=== PATIENT | female | born 1975 | race Caucasian/White ===

== ENCOUNTER 2018-05-18 12:43 | Outpatient (CLI) | payer MEDICAID ==
[2018-05-18] MEDS: LACTATED RINGER'S 1,000 ML IV ×2 (15:07→20:00)
[2018-05-18 16:11] LABS: ADD UMIC YES; UR ASCORBIC ACID NEGATIVE (NEGATIVE); UR BACTERIA FEW /HPF (NONE SEEN); UR BILIRUBIN (Dip) NEGATIVE (NEGATIVE); UR BLOOD (Dip) NEGATIVE (NEGATIVE); UR CLARITY CLEAR (CLEAR); UR COLOR YELLOW (YELLOW); UR GLUCOSE (Dip) NEGATIVE (NEGATIVE); UR KETONES (Dip) 1+ mg/dL (NEGATIVE); UR LEUKOCYTE ESTERASE (Dip) TRACE Leu/ul (NEGATIVE); UR MUCUS FEW /HPF (NONE SEEN); UR NITRITE (Dip) NEGATIVE (NEGATIVE); UR RBC 0 /HPF (0-5); UR SPECIFIC GRAVITY (Dip) 1.012 (1.003-1.030); UR SQUAMOUS EPITHELIAL CELL FEW /HPF (FEW); UR TOTAL PROTEIN (Dip) NEGATIVE (NEGATIVE); UR UROBILINOGEN (Dip) NEGATIVE (NEGATIVE); UR WBC 2 /HPF (0-5)
[2018-05-18 18:09] LABS: ADD MAN DIFF? NO
[2018-05-18 18:15] LABS: WHITE BLOOD COUNT 9.9 10^3/ul (4.8-10.8)
[2018-05-18 18:15] LABS: BASOPHILS % 0.1 % (0.0-2.0); EOSINOPHILS # 0.1 10^3/ul (0.0-0.5); EOSINOPHILS % 0.5 % (0.0-7.0); HEMATOCRIT 35.8 % (37.0-47.0); LYMPHOCYTES # 0.8 10^3/ul (0.8-2.9); LYMPHOCYTES % 7.6 % (15.0-51.0); MEAN CORPUSCULAR HEMOGLOBIN 32.3 pg (29.0-33.0); MEAN CORPUSCULAR HGB CONC 33.5 g/dl (32.0-37.0); MEAN CORPUSCULAR VOLUME 96.2 fl (82.0-101.0); MEAN PLATELET VOLUME 9.3 fl (7.4-10.4); MONOCYTE # 0.5 10^3/ul (0.3-0.9); MONOCYTES % 4.9 % (0.0-11.0); NEUTROPHIL # 8.6 10^3/ul (1.6-7.5); NEUTROPHILS % 86.3 % (39.0-77.0); PLATELET COUNT 148 10^3/UL (140-415); RED BLOOD COUNT 3.72 10^6/ul (4.20-5.40); RED CELL DISTRIBUTION WIDTH 13.7 % (11.5-14.5)
[2018-05-18 18:32] LABS: GLUCOSE 79 mg/dl (70-220)
== END 2018-05-18 20:34 | disposition home or self-care (01) ==
LOC: OBT 12:43 → L-D 12:43 → OBT 20:34
DX: O26.893 Other specified pregnancy related conditions, third trimester (principal); R10.2 Pelvic and perineal pain; Z3A.36 36 weeks gestation of pregnancy; R82.90 Unspecified abnormal findings in urine
CPT/HCPCS: 76818; 81001; 82947; 85025

== ENCOUNTER 2018-06-10 05:55 | Inpatient (IN) | payer MEDICAID ==
[2018-06-10 06:58] LABS: ADD MAN DIFF? NO
[2018-06-10] MEDS ORDERED: CARBOPROST 250 MCG INJ IM (07:00)
[2018-06-10] MEDS ORDERED: METHYLERGONOVINE 0.2 MG INJ IM (07:00)
[2018-06-10] MEDS ORDERED: MISOPROSTOL 200 MCG TAB PR ×2 (07:00→07:30)
[2018-06-10] MEDS ORDERED: OXYTOCIN 30 UNITS/LR 500 ML IV ×2 (07:00→07:30)
[2018-06-10 07:02] LABS: WHITE BLOOD COUNT 9.2 10^3/ul (4.8-10.8)
[2018-06-10 07:02] LABS: BASOPHILS % 0.2 % (0.0-2.0); EOSINOPHILS # 0.1 10^3/ul (0.0-0.5); HEMATOCRIT 39.4 % (37.0-47.0); HEMOGLOBIN 13.6 g/dl (12.0-16.0); LYMPHOCYTES % 10.4 % (15.0-51.0); MEAN CORPUSCULAR HEMOGLOBIN 32.5 pg (29.0-33.0); MEAN CORPUSCULAR HGB CONC 34.5 g/dl (32.0-37.0); MEAN PLATELET VOLUME 9.9 fl (7.4-10.4); MONOCYTE # 0.5 10^3/ul (0.3-0.9); MONOCYTES % 5.3 % (0.0-11.0); NEUTROPHIL # 7.6 10^3/ul (1.6-7.5); NEUTROPHILS % 82.1 % (39.0-77.0); PLATELET COUNT 176 10^3/UL (140-415); RED BLOOD COUNT 4.19 10^6/ul (4.20-5.40); RED CELL DISTRIBUTION WIDTH 13.1 % (11.5-14.5)
[2018-06-10] MEDS: LACTATED RINGER'S 1,000 ML IV ×4 (07:28→22:46)
[2018-06-10 07:29] LABS: INR 0.82; PARTIAL THROMBOPLASTIN TIME 30.9 Sec (23.0-35.0); PROTIME 11.4 Sec (11.9-14.9); PT RATIO 0.9
[2018-06-10] MEDS ORDERED: NALOXONE (0.4 MG/ML) INJ IV (07:30)
[2018-06-10] MEDS ORDERED: OXYCODONE/ACETAMINOPHEN (5/325) TAB PO (07:30)
[2018-06-10] MEDS ORDERED: ONDANSETRON 4 MG INJ IV ×2 (07:30)
[2018-06-10] MEDS ORDERED: DIPHENHYDRAMINE 50 MG INJ IV ×2 (07:30)
[2018-06-10] MEDS ORDERED: FENTAnyl 50 MCG/ML VIAL IV ×3 (07:30)
[2018-06-10] MEDS ORDERED: KETOROLAC 30 MG INJ IV (07:30)
[2018-06-10] MEDS ORDERED: NA PHOSPHATE/BIPHOS 133 ML ENEMA PR (07:30)
[2018-06-10] MEDS ORDERED: METOCLOPRAMIDE 10 MG INJ IV (07:30)
[2018-06-10] MEDS ORDERED: HYDROmorphONE 1 MG/5 ML IV SYRINGE IV ×3 (07:30)
[2018-06-10] MEDS ORDERED: LANOLIN HPA 1 PKT TOP (07:30)
[2018-06-10] MEDS ORDERED: HYDROmorphONE 0.5 MG/0.5 ML SYG IV ×2 (07:30)
[2018-06-10] MEDS ORDERED: ALBUTEROL 0.083% (NEB) 2.5 MG/3 ML AMP HHN (07:30)
[2018-06-10] MEDS ORDERED: morphine SULFATE/PF (10 MG/10 ML) INJ (07:47)
[2018-06-10] MEDS ORDERED: PHENYLephrine 10 MG INJ (07:47)
[2018-06-10 08:12] LABS: HEPATITIS B SURFACE ANTIGEN NEGATIVE (NEGATIVE)
[2018-06-10] MEDS: SENNA/DOCUSATE NA (8.6MG/50MG) TAB PO ×2 (09:00→21:00)
[2018-06-10] MEDS: KETOROLAC 30 MG INJ IV (09:39)
[2018-06-10] MEDS: OXYTOCIN 30 UNITS/LR 500 ML IV ×2 (11:02→13:06)
[2018-06-10] MEDS: IBUPROFEN 600 MG TAB PO ×2 (12:00→18:00)
[2018-06-10] MEDS: CEFAZOLIN 2 GM/50 ML (PMX) 50 ML IVPB ×2 (12:06→16:17)
[2018-06-10 22:21] LABS: RAPID PLASMA REAGIN NONREACTIVE (NR)
[2018-06-11] MEDS: LACTATED RINGER'S 1,000 ML IV (00:37)
[2018-06-11] MEDS: IBUPROFEN 600 MG TAB PO ×4 (06:00→18:19)
[2018-06-11 07:00] LABS: ADD MAN DIFF? NO
[2018-06-11 07:02] LABS: BASOPHILS % 0.2 % (0.0-2.0); EOSINOPHILS # 0.1 10^3/ul (0.0-0.5); EOSINOPHILS % 0.8 % (0.0-7.0); HEMATOCRIT 29.8 % (37.0-47.0); HEMOGLOBIN 10.2 g/dl (12.0-16.0); LYMPHOCYTES # 0.9 10^3/ul (0.8-2.9); LYMPHOCYTES % 9.6 % (15.0-51.0); MEAN CORPUSCULAR HEMOGLOBIN 32.9 pg (29.0-33.0); MEAN CORPUSCULAR HGB CONC 34.2 g/dl (32.0-37.0); MEAN CORPUSCULAR VOLUME 96.1 fl (82.0-101.0); MEAN PLATELET VOLUME 9.8 fl (7.4-10.4); MONOCYTE # 0.4 10^3/ul (0.3-0.9); MONOCYTES % 4.5 % (0.0-11.0); NEUTROPHILS % 84.4 % (39.0-77.0); PLATELET COUNT 132 10^3/UL (140-415); RED CELL DISTRIBUTION WIDTH 13.6 % (11.5-14.5)
[2018-06-11 07:02] LABS: WHITE BLOOD COUNT 9.4 10^3/ul (4.8-10.8)
[2018-06-11] MEDS: SENNA/DOCUSATE NA (8.6MG/50MG) TAB PO ×2 (09:11→21:17)
[2018-06-11] MEDS: OXYCODONE/ACETAMINOPHEN (5/325) TAB PO (09:12)
[2018-06-12] MEDS: IBUPROFEN 600 MG TAB PO ×5 (00:15→23:30)
[2018-06-12] MEDS: SENNA/DOCUSATE NA (8.6MG/50MG) TAB PO ×2 (08:36→21:09)
[2018-06-13] MEDS: GUAIFENESIN/DM 5ML CUP PO (00:48)
[2018-06-13] MEDS: OXYCODONE/ACETAMINOPHEN (5/325) TAB PO (02:53)
[2018-06-13] MEDS: IBUPROFEN 600 MG TAB PO ×2 (05:38→13:01)
[2018-06-13] MEDS: SENNA/DOCUSATE NA (8.6MG/50MG) TAB PO (08:30)
[2018-06-13] MEDS: DIPHTH/TET/ACEL PERTUSS (ADULT) 0.5 ML VIAL IM* (09:00)
[2018-06-13] MEDS: MEASLES,MUMPS,RUBELLA VACCINE INJ SC* (09:00)
== END 2018-06-13 15:13 | disposition home or self-care (01) | DRG 788 ==
LOC: OBT 05:55 → L-D 05:55 → OBT 06:30 → L-D 06:30 → PP1 16:25
PROVIDERS: Specialist
PROC: 10D00Z1 Extraction of Products of Conception, Low, Open Approach (ICD-10-PCS; principal; 2018-06-10 08:30)
DX: O34.211 Maternal care for low transverse scar from previous cesarean delivery (principal); Z3A.40 40 weeks gestation of pregnancy; Z37.0 Single live birth
CPT/HCPCS: 85025; 85610; 85730; 86592; 86850; 86900; 86901; 87340